=== PATIENT | male | born 1970 | race Caucasian/White ===

== ENCOUNTER → 2020-05-29 09:16 | Outpatient (CLI) | payer BC, SELFPAY ==
--- NOTE | ~2020-05-29 | MR_ITS ---
EXAMINATION: MR shoulder LT wo con DATE: 05/29/2020 10:29 INDICATION: Left shoulder pain TECHNIQUE: Magnetic resonance imaging (MRI) of the left shoulder was performed without intravenous co ntrast. Sequences included axial PD-weighted FS FSE, coronal oblique PD-weighted FS FSE, coronal obli que T2-weighted FS FSE, sagittal PD-weighted FS FSE, and sagittal T1-weighted SE. COMPARISON: None. FINDINGS: Coracoacromial arch: The acromion undersurface is curved in morphology (type II). The coracoacromial ligament is normal. M ild acromioclavicular osteoarthritis. Rotator cuff: Moderate subscapularis tendinopathy and mild infraspinatus tendinopathy without discrete rotator cuff tear. The supraspinatus and teres minor tendons are normal. At the rotator cuff interval there is in creased soft tissue density replacing the normal T1 hyperintense fat and which along with thickening of the capsule at the axillary recess can be seen with adhesive capsulitis is a clinical diagnosis. N ormal rotator cuff muscle bulk and signal. Biceps tendon, glenoid labrum and glenohumeral cartilage: Long head of the biceps tendon is normal. There is an irregular increased intrasubstance signal withi n the thickened anterior and anteroinferior glenoid labrum consistent with degenerative tearing. Ther e is an associated linear chondral flap tear at the anteroinferior glenoid which extends peripherally to the labrum consistent with a glenoid labral articular disruption (GLAD) lesion. There is more wel l-defined extension of a linear labral tear along the inferior to posterior inferior glenoid with a t iny para labral cyst at the 8:00 position. Fluid: Physiologic amount of fluid in the glenohumeral joint and biceps tendon sheath. No loose osteochondra l bodies. Small amount of fluid in the subacromial/subdeltoid bursa consistent with mild bursitis. Bones: Normal marrow signal with no edema, fracture or abnormal marrow replacing process. IMPRESSION: 1. Mild to moderate rotator cuff tendinopathy without discrete tear. 2. Labral tear including a GLAD lesion with associated chondral flap tear at the anteroinferior gleno id. 3. Mild acromioclavicular osteoarthritis. 4. Thickening of the capsule at the axillary recess and increased soft tissue density at the rotator cuff interval, both thighs which can be seen in the setting of adhesive capsulitis which is a clinica l diagnosis. 5. Mild subacromial/subdeltoid bursitis. Reviewed, dictated and finalized at location A. IMPRESSION: 1. Mild to moderate rotator cuff tendinopathy without discrete tear. 2. Labral tear including a GLAD lesion with associated chondral flap tear at th e anteroinferior glenoid. 3. Mild acromioclavicular osteoarthritis. 4. Thickening of the capsule at the axillary recess and increased soft tissue d ensity at the rotator cuff interval, both thighs which can be seen in the setti ng of adhesive capsulitis which is a clinical diagnosis. 5. Mild subacromial/subdeltoid bursitis.
== END ==
PROVIDERS: PCP Registered Nurse; Visit Provider Registered Nurse
DX: M19.012 Primary osteoarthritis, left shoulder (principal); M75.52 Bursitis of left shoulder
CPT/HCPCS: 73221

== ENCOUNTER → 2020-12-03 06:58 | Outpatient (CLI) | payer BC, SELFPAY ==
[2020-12-03 20:45] LABS: SARS-CoV-2 RNA PCR Negative
== END ==
PROVIDERS: PCP Registered Nurse; Visit Provider Registered Nurse
DX: Z20.822 Contact with and (suspected) exposure to COVID-19 (principal); R05 Cough
CPT/HCPCS: C9803; U0003; U0005

== ENCOUNTER 2022-04-23 17:10 | Emergency (ER) | payer BC, SELFPAY ==
[2022-04-23 17:26] VITALS: BP 122/89; PULSE 111; RESP 16; TEMP 37; O2SAT 98
--- NOTE | 2022-04-23 17:36 | ED.WOUNDLAC ---
HPI - Wound/Laceration General Chief Complaint: Wound/Laceration Stated Complaint: elbow/knee on left side Time Seen by Provider: 04/23/22 17:36 Source: patient Mode of arrival: ambulatory Limitations: no limitations History of Present Illness HPI narrative: 51-year-old male presented for complaint of laceration to left elbow and abrasion to left knee and lower leg after injury today. He states he fell off a golf cart while at a tournament. He denies hitting his head or loss of consciousness. Currently denies any pain. Denies numbness or tingling to the arm. Did not clean the wound prior to arrival. Tetanus 2016. Related Data Home Medications Medication Instructions Recorded Confirmed No Home Medications 04/23/22 04/23/22 Allergies Allergy/AdvReac Type Severity Reaction Status Date / Time No Known Allergies Allergy Verified 06/01/21 14:42 Review of Systems Review of Systems: CONSTITUTIONAL: Denies body aches, fever, chills, or sweats. CARDIOVASCULAR: Denies chest pain, palpitations, or edema. RESPIRATORY: Denies cough or dyspnea. SKIN: reports skin wounds left arm and left leg MUSCULOSKELETAL: Denies back pain, joint pain NEUROLOGIC: Denies numbness, tingling, or weakness. [facility] Family History Family History Sibling Hypertension Father Family history of chronic obstructive pulmonary disease Mother Family history of coronary artery disease Social History Social History Smoking status: Never smoker Alcohol intake: current Comments At time of signature, I have reviewed and agree with nursing past medical, surgical, social and family history unless otherwise noted. Please see nursing chart for further information. There is no relevant family history pertinent to the presenting complaint Exam Narrative: GENERAL: Well-appearing HEAD: Normocephalic, atraumatic. EYES: conjunctivae clear, and EOMI. ENT: Mucous membranes moist. Oropharynx without edema, erythema or lesions. CHEST: Clear to auscultation. HEART: Regular rate and rhythm. SKIN: Warm, dry. Approx 2cm irregular laceration to left elbow, gaping, bleeding; abrasion to knee approx 2cm diameter, abrasion to left lateral lower leg approx [id number] no active bleeding NEURO: Alert and oriented x3. Course Course Emergency Course: Patient is aware of diagnosis, understands and agrees to treatment plan. Anticipatory guidance given. Patient agrees to follow-up as directed and is aware of reasons to seek care at the emergency department. Portions of this record may have been created with voice recognition software Level of Care: Express Care Visit Vital Signs Vital signs: Vital Signs Temperature 98.6 F 04/23/22 17:26 Pulse Rate 111 H 04/23/22 17:26 Respiratory Rate 16 04/23/22 17:26 Blood Pressure 122/89 04/23/22 17:26 Pulse Oximetry 98 04/23/22 17:26 Temperature 98.6 F 04/23/22 17:26 Pulse Rate 111 H 04/23/22 17:26 Respiratory Rate 16 04/23/22 17:26 Blood Pressure 122/89 04/23/22 17:26 Pulse Oximetry 98 04/23/22 17:26 Reviewed Procedures Laceration left elbow: Date: 04/23/22 Size (cm): 2 Description: irregular and clean Depth: simple, single layer Local Anesthetic: with epi and other anesthetic (xylocaine) Amount of anesthesia used (mL): 3 Pre-repair: wound explored and irrigated ====== Skin Level ====== Skin layer closed with: nylon Size (cm): 5-0 Number of sutures: 3 Technique: simple, interrupted ====== Subcutaneous Layer ====== ====== Muscle Layer ====== ====== Tendon Layer ====== Dressing: Tolerated suture placement well. Abrasions cleansed, PHILIPPE applied with nonadhesive dressing and coban. MDM - Wound/Laceration MDM Narrative Medical decision making narrative:
== END 2022-04-23 18:19 | disposition home or self-care (01) ==
PROVIDERS: Emergency Provider Nurse Practitioner Family
DX: S51.012A Laceration without foreign body of left elbow, initial encounter (principal); V86.35XA Unspecified occupant of 3- or 4- wheeled all-terrain vehicle (ATV) injured in traffic accident, initial encounter; Y93.53 Activity, golf; S80.212A Abrasion, left knee, initial encounter; S80.812A Abrasion, left lower leg, initial encounter
CPT/HCPCS: 12001; 99212; G0463